=== PATIENT | female | born 1950 | race Caucasian/White ===

== ENCOUNTER 2022-06-26 14:42 | Outpatient (CLI) | payer MEDICARE, SELFPAY ==
[2022-06-26 14:10] LABS: Chloride* 109 mmol/L (96-114); Potassium* 3.7 mmol/L (3.6-5.1); Sodium* 144 mmol/L (135-149)
[2022-06-26 14:13] LABS: Blood Urea Nitrogen* 11 mg/dL (7-30); Carbon Dioxide* 29 mmol/L (20-32); Cholesterol* 181 mg/dL (90-199); Estimated Glomerular Filt Rate 60 ml/min; Glucose* 88 mg/dL (60-115); Triglycerides* 147 mg/dL (40-149)
[2022-06-26 14:14] LABS: Calcium* 8.7 mg/dL (8.4-10.6); HDL Cholesterol* 66 mg/dL (>=50); LDL Cholesterol Calculated 86 mg/dL (<100)
== END 2022-06-26 14:43 | disposition home or self-care (01) ==
PROVIDERS: PCP Emergency Medicine; Visit Provider Emergency Medicine
DX: Z00.00 Encounter for general adult medical examination without abnormal findings (principal); Z13.6 Encounter for screening for cardiovascular disorders; R19.7 Diarrhea, unspecified
CPT/HCPCS: 80048; 80061

== ENCOUNTER 2022-07-03 12:36 | Outpatient (CLI) | payer MEDICARE, SELFPAY ==
--- NOTE | 2022-07-03 14:21 | W.ANESCHARGE ---
Anesthesia Charges Start Date/Time Anesthesia Start Date: 07/03/22 Anesthesia Start Time: 14:05 Stop Date/Time Anesthesia Stop Date: 07/03/22 Anesthesia Stop Time: 14:43 Summary Emergency: No Extremes of Age: Over 70-CPT 13656
--- NOTE | 2022-07-03 14:45 | W.ANESCHARGE ---
Anesthesia Charges Start Date/Time Anesthesia Start Date: 07/03/22 Anesthesia Start Time: 14:05 Stop Date/Time Anesthesia Stop Date: 07/03/22 Anesthesia Stop Time: 14:43 Summary Emergency: No Extremes of Age: Over 70-CPT 30198
== END 2022-07-03 12:37 | disposition home or self-care (01) ==
LOC: OP CLINIC 12:37
PROVIDERS: PCP Emergency Medicine; Visit Provider Surgery
DX: Z12.11 Encounter for screening for malignant neoplasm of colon (principal); K63.5 Polyp of colon; K57.30 Diverticulosis of large intestine without perforation or abscess without bleeding
CPT/HCPCS: 00811; 45385; 88305; 99100; J2704

== ENCOUNTER 2022-08-23 16:10 | Outpatient (CLI) | payer MEDICARE, SELFPAY ==
[2022-08-23 21:57] LABS: Chloride* 110 mmol/L (96-114); Potassium* 4.2 mmol/L (3.6-5.1); Sodium* 140 mmol/L (135-149)
[2022-08-23 21:59] LABS: Creatinine* 1.1 mg/dL (0.5-1.5); Estimated Glomerular Filt Rate 53 ml/min
[2022-08-23 22:00] LABS: Blood Urea Nitrogen* 13 mg/dL (7-30); Calcium* 9.2 mg/dL (8.4-10.6); Carbon Dioxide* 26 mmol/L (20-32); Glucose* 87 mg/dL (60-115)
== END 2022-08-23 16:11 | disposition home or self-care (01) ==
PROVIDERS: PCP Emergency Medicine; Visit Provider Emergency Medicine
DX: Z01.818 Encounter for other preprocedural examination (principal)
CPT/HCPCS: 80048

== ENCOUNTER 2022-08-30 06:04 | Day surgery (SDC) | payer MEDICARE, SELFPAY ==
[2022-08-30 06:30] VITALS: BMI 25.7
[2022-08-30 06:33] VITALS: BP 134/85; PULSE 72; RESP 16; TEMP 36.2; O2SAT 100
[2022-08-30] MEDS: LACTATED RINGERS 1000 ML 1,000 ML 100 ML IV (06:40)
[2022-08-30] MEDS: ETHYL CHLORIDE 1 APPLICATION 1 APPLIC TOPICAL (06:40)
[2022-08-30] MEDS: SODIUM CHLORIDE 0.9 % (FLUSH) 10 ML SYRINGE IVF (06:40)
--- NOTE | 2022-08-30 06:46 | SUR.PREOP ---
home covid test negative
[2022-08-30 06:56] LABS: Hemoglobin* 12.8 gm/dL (12.0-16.0)
--- NOTE | 2022-08-30 08:01 | P.ANES_ITS ---
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
[2022-08-30] MEDS: BUPIVACAINE 0.5% 30 ML 8 ML INJECTION (08:10)
--- NOTE | 2022-08-30 08:26 | SUR.OPER ---
deficit of 65ml
[2022-08-30 08:40] VITALS: BP 121/62; PULSE 65; RESP 16; TEMP 36.1; O2SAT 98
--- NOTE | 2022-08-30 08:42 | P.GYNPRC_ITS ---
Procedure Note Date Seen: 08/30/22 Procedure Details: Preop diagnosis: Postmenopausal thickened endometrium Postop diagnosis: Postmenopausal thickened endometrium Name of procedure: Hysteroscopy, dilation and curettage Surgeon: Mario Alberto Cortes [facility] Agent: None Complications: None EBL: 5mL Drains: None Findings: Bimanual exam: Midline uterus of about 7cm, regular contour, no adnexal masses. Genitalia: Evidence of external hemorrhoids, small wart like lesion seen at around 8 o clock of perineum. Introitus with evidence of atrophy. Pelvic organ prolapse noted. Cervix seen to be as a small dot. Intrauterine cavity: Bilateral cornual openings seen, endometrial tissue looks like scared tissue, multiple calcifications. No abnormal vascularity or masses. Endocervical canal with a polypoid lesion that was removed. Patient was taken to the OR were MAC anesthesia was administered without difficulty. She was placed in the dorsal lithotomy position with Kin type stirrups. An exam under anesthesia as described above. Patient was then prepared and draped in the normal sterile fashion. A bivalved speculum was inserted in the posterior aspect of the vagina. Due to high grade prolapse and need for extensive cervical os dilation, a Lee catheter was placed to further identify bladder and keep empty throughout procedure to avoid damage to this structure. 0.5% Marcaine was injected at 2 and 11 o'clock a total of about 5mL utilized. A single-tooth tenaculum was used to grasp the anterior lip of the c ervix. The cervical os was sequentially dilated to accommodate the 5 mm TrueClear hysteroscope using Hegar dilators. This took an increased amount of time due to stenotic external cervical os. A 5 mm 30 degree TrueClear hysteroscope was introduced under direct visualization, and the uterus was distended with normal saline. Findings as above. Soft tissue incisor blade from TrueClear hysteroscope system was introduced under direct visualization and endometrial curettings performed. Hysteroscope removed under direct visualization. Sharp curettage performed afterwards. Tenaculum was removed from the cervix and good hemostasis was noted at puncture sites. Patient tolerated the procedure well. Instrument and sponge counts were correct x2. The patient was awakened from MAC anesthesia and taken to the recovery room in a stable condition. The patient will go home after recovering from anesthesia and meeting all the criteria for discharge. She was given instruction regarding follow-up visit in 2 weeks at [facility] and instructions for pain medication. Fluid deficit: 100mL
[2022-08-30] MEDS: ACETAMINOPHEN 500 MG TABLET 1000 MG PO (08:49)
[2022-08-30 08:55] VITALS: BP 129/72; PULSE 54; RESP 16; O2SAT 99
[2022-08-30 09:10] VITALS: BP 126/70; PULSE 48; RESP 16; O2SAT 98
[2022-08-30] MEDS: KETOROLAC 15 MG/ML inj IVP (09:11)
[2022-08-30 09:26] VITALS: BP 132/70; PULSE 62; RESP 16; TEMP 36.9; O2SAT 100
== END 2022-08-30 09:43 | disposition home or self-care (01) ==
PROVIDERS: PCP Emergency Medicine; Visit Provider Obstetrics & Gynecology
PROC: 0UDB8ZZ Extraction of Endometrium, Via Natural or Artificial Opening Endoscopic (ICD-10-PCS; CPT 58558; principal; 2022-08-30 07:15)
DX: R93.89 Abnormal findings on diagnostic imaging of other specified body structures (principal); N84.0 Polyp of corpus uteri
CPT/HCPCS: 58558; 00952; 36415; 85018; 88305; 99100; A9270; J1885; J2250; J2704; J3010; J3490; J7120

== ENCOUNTER 2023-02-06 20:38 | Emergency (ER) | payer MEDICARE, SELFPAY ==
[2023-02-06 20:57] VITALS: BP 148/84; PULSE 105; RESP 16; TEMP 36.6; O2SAT 100; BMI 25.6
--- NOTE | 2023-02-06 21:12 | ED.GENADULT ---
HPI - General Adult General Time Seen by Provider: 21:12 Date Seen: 02/06/23 Chief complaint: Back Injury/Pain Stated complaint: Back pain, Covid+ Time Seen by Provider: 02/06/23 21:03 Source: patient Mode of arrival: ambulatory Limitations: no limitations History of Present Illness HPI narrative: Patient is a 72-year-old female with a history of osteoarthritis, osteopenia, nephrolithiasis presenting to emergency department for back pain. She was diagnosed with COVID also. Patient states since Saturday she has been having worsening back pain. She went to her primary care provider and had imaging that she said was negative today. She denies any trauma to the area. States it feels like the muscle is tight and wraps around to her right lower ribs. Patient states she has had kidney stones in the past but this feels nothing like at that. She states this feels much more superficial in within the musculoskeletal air. She was given a hydrocodone by primary care provider. She took 2.5 mg and then 2 hours later bili 2.5 the improvement of symptoms. She states she was 1st taken Tylenol ibuprofen which was helping with her symptoms would stop that today because she took the hydromorphone. She thinks that set the pain over the top. Denies dysuria, abdominal pain, fevers, chills, chest pain, shortness of breath, weakness, numbness, diarrhea, constipation. Related Data Home Medications Medication Instructions Recorded Confirmed cholestyramine-aspartame 4 gram See Rx Instructions .Route .COMPLEX 08/21/22 02/06/23 oral powder (Prevalite) Previous Rx's Medication Instructions Recorded meloxicam 7.5 mg tablet 7.5 mg PO QDAY #30 tabs 05/07/22 nirmatrelvir 300 mg (150 mg See Rx Instructions PO .COMPLEX 02/04/23 x2)-ritonavir 100 mg tablet,dose #30 ea pack (Paxlovid) hydrocodone 5 mg-acetaminophen 325 0.5 - 1 tab PO Q4-6H PRN pain #20 02/06/23 mg tablet tabs Allergies Allergy/AdvReac Type Severity Reaction Status Date / Time No Known Allergies Allergy Verified 02/06/23 11:33 Review of Systems Status of ROS: Reports: 10 or more systems reviewed and unremarkable except as noted in History and below [facility] [place] [facility] History (Updated 02/06/23 @ 22:04 by Tom Castro DO) Chest pain ?R07.9 - Chest pain, unspecified (ICD-10) Leg pain ?M79.606 - Pain in leg, unspecified (ICD-10) Endometrial thickening on ultrasound ?R93.89 - Abnormal findings on diagnostic imaging of other specified body structures (ICD-10) Pre-op exam ?Z01.818 - Encounter for other preprocedural examination (ICD-10) Vaginal prolapse ?N81.10 - Cystocele, unspecified (ICD-10) Rectal prolapse ?K62.3 - Rectal prolapse (ICD-10) Encounter for postoperative care ?Z48.89 - Encounter for other specified surgical aftercare (ICD-10) Encounter for screening colonoscopy ?Z12.11 - Encounter for screening for malignant neoplasm of colon (ICD-10) Surgical History History of thumb surgery ?Z98.890 - Other specified postprocedural states (ICD-10) History of lithotripsy (08/12/09) ?Z98.890 - Other specified postprocedural states (ICD-10) History of cholecystectomy ?Z90.49 - Acquired absence of other specified parts of digestive tract (ICD-10) Family History Sister Breast cancer Diabetes Maternal Grandmother Breast cancer Father Diabetes Social History Smoking Status: Never smoker How often do you have a drink containing alcohol: 2-3 times a week How often do you have six or more drinks on one occasion: Never AUDIT-C Alcohol total score: 3 Little interest or pleasure in doing things: several days Feeling down, depressed, or hopeless: several days Exam Narrative: Exam Narrative: Const: Well-nourished, Well-developed, in mild distress Eyes: PERRL, no conjunctival injection, and symmetrical lids ENMT: Atraumatic external nose and ears. Moist mucous membranes. Neck: Symmetric, trachea midline, No thyromegaly. CVS: RRR, No murmurs or gallops. Peripheral pulses 2+ and equal in all extremities RESP: Unlabored respiratory effort. Clear to auscultation bilaterally. GI: Nontender/Nondistended, No rebound or guarding. MSK:Extremities w/o deformity, Normal Active ROM. Tenderness to right paraspinal muscles or on the costovertebral angle radiates to her right anterior lower ribs Skin: Warm, Dry. No rashes or lesions. Neuro: Normal Muscle tone, No focal neurological deficits. Psych: Awake, Alert, & Oriented x3. Appropriate mood and affect. Const: Vital Signs, click to edit/add: Vital Signs - 24 hr 02/06/23 20:57 Temperature 97.9 F Pulse Rate [Right Pulse Oximeter] 105 H Respiratory Rate 16 Blood Pressure [Ri ght Upper Arm] 148/84 H Pulse Oximetry 100 Oxygen Delivery Me thod Room Air Course Vital Signs Vital signs: Initial Vital Signs Temperature 97.9 F 02/06/23 20:57 Temperature Source Temporal Artery Scan 02/06/23 20:57 Pulse Rate 105 H 02/06/23 20:57 Pulse Rhythm Regular 02/06/23 20:57 Respiratory Rate 16 02/06/23 20:57 Blood Pressure 148/84 H 02/06/23 20:57 Blood Pressure Mean 105 02/06/23 20:57 Blood Pressure Position Sitting 02/06/23 20:57 Pulse Oximetry 100 02/06/23 20:57 Oxygen Delivery Method Room Air 02/06/23 20:57 Vital Signs Temperature 97.9 F 02/06/23 20:57 Pulse Rate 105 H 02/06/23 20:57 Respiratory Rate 16 02/06/23 20:57 Blood Pressure 148/84 H 02/06/23 20:57 Pulse Oximetry 100 02/06/23 20:57 Oxygen Delivery Method Room Air 02/06/23 20:57 Temperature 97.9 F 02/06/23 20:57 Pulse Rate 105 H 02/06/23 20:57 Respiratory Rate 16 02/06/23 20:57 Blood Pressure 148/84 H 02/06/23 20:57 Pulse Oximetry 100 02/06/23 20:57 Oxygen Delivery Method Room Air 02/06/23 20:57 Medical Decision Making MDM Narrative Medical decision making narrative: Patient is a 72-year-old female presenting for right-sided back pain. She has also recently diagnosed with COVID. She was seen by her primary care provider and was given hydromorphone which did not improve her symptoms. She was taking Tylenol ibuprofen before but stopped them because she was given hydromorphone. She think stopping those medications caused her pain to get worse. She does state the pain is in her back radiating to her flank and ribs. She has had kidney stones in the past as adamant this feels nothing like that. She states this feels more superficial within the musculoskeletal layer. This time and not believe she has a kidney stone we would not do a CT scan. Most left the musculoskeletal ache levels worsened by the recent COVID diagnosis. Patient was given a muscle relaxer, Toradol and a Lidoderm patch. After these medications her symptoms improved significantly since she is able to walk around. She is otherwise doing well at this time and I will discharge her home. Will give her pain medication to go home with. She is agreeable to this plan. I did describe both Flexeril and oxycodone. I I spoke to her in depth from home again confirmed complete info was taken together that she needs to take them for her pain she should be very careful. Gave instructions to try all other medications before she tries the oxycodone. She was prescribed Paxil that but states she is not taking because she did not like the taste in her mouth. Paxil of it does cause increased that was oxycodone. I talked her about this and states if she does decide to take the Paxil med to take 2.5 mg of oxycodone instead of the 5. She states she understands. Discharge Plan Discharge Clinical Impression: Muscle strain Patient Disposition: Home, Self-Care Condition: Improved Instructions: Muscle Strain (DC) Additional Instructions: Follow-up with primary care provider. Take the medications as prescribed. Return for new worsening symptoms. Take Tylenol, ibuprofen and the Flexeril before you try the oxycodone. Using Flexeril and oxycodone at the same time could cause you become lightheaded. So be very careful of your taking these together. Prescriptions: No Action Paxlovid 300 mg (150 mg x 2)-100 mg tablets,dose pack See Rx Instructions PO .COMPLEX Qty: 30 0RF Rx Instructions: take TWO 150 mg tablets of nirmatrelvir with ONE 100 mg tablet of ritonavir twice daily for 5 days PO hydrocodone-acetaminophen 5-325 mg tablet 0.5 - 1 tab PO Q4-6H PRN (Reason: pain) Qty: 20 0RF Prevalite 4 gram powder See Rx Instructions .ROUTE .COMPLEX Patient Comments: TAKE 4 G BY MOUTH AT BEDTIME. Rx Instructions: 4 gram by mouth at bedtime. meloxicam 7.5 mg tablet 7.5 mg PO QDAY Qty: 30 0RF Follow Up/Referrals: Kaleigh Gray MD [Primary Care Provider] - Stand Alone Forms: MyHealth Info Instructions
[2023-02-06] MEDS: LIDOCAINE 5% PATCH 1 PATCH TRANSDERMA (21:25)
[2023-02-06] MEDS: KETOROLAC 30 MG/ML inj IM (21:26)
[2023-02-06] MEDS: CYCLOBENZAPRINE HCL 10 MG TABLET PO (21:32)
--- NOTE | 2023-02-06 21:32 | ED.NURSE ---
Per provider, due to spasms described, hold on morphine for now and administer flexeril. See MAR for additional details.
== END 2023-02-06 22:11 | disposition home or self-care (01) ==
PROVIDERS: Emergency Provider Student in an Organized Health Care Education/Training Program; PCP Emergency Medicine
DX: S39.012A Strain of muscle, fascia and tendon of lower back, initial encounter (principal)
CPT/HCPCS: 96372; 99282; 99283; A9270; J1885; J2270

== ENCOUNTER 2023-03-06 14:28 | Outpatient (CLI) | payer MEDICARE, SELFPAY ==
--- NOTE | 2023-03-06 15:00 | CT_ITS ---
Final Report Patient: NIMO WOOTEN Facility:?[facility] Patient ID:?[id number] Site Patient ID:?[id number]. Site :?[id number] Study:?CT Chest Angio w/ 95cc isovue-370 PE Protocol-03/06/2023 3:18:28 PM Ordering Physician:?Isaac Farris Final Report: INDICATION: WORSENING CHEST PAIN AFTER PE, BILAT CHEST/FLANK PAIN. PE DIAGNOSED 02/19. TECHNIQUE: CT chest PE was acquired with 95 cc Omnipaque 370 IV contrast. COMPARISON: No prior CT pulmonary angiogram available for comparison at the time of this dictation. FINDINGS: Heart and vasculature: Contrast opacification of the pulmonary arterial tree is adequate. No sign of pulmonary embolism. Heart size is normal. Thoracic aorta and pulmonary artery are normal in caliber. Lungs and pleura: Left basilar multilobar multisegmental (inferior lingular segment left upper lobe, anteromedial segment and lateral segment left lower lobe) pleural-based been opacities consistent with subsegmental atelectasis and/or nonspecific fibrosis. No pleural effusions, pleural thickening, or pneumothorax. Lymph nodes/mediastinum: No mediastinal, hilar, or axillary adenopathy. Chest wall: No masses. Upper abdomen: No acute or significant findings. Bones: Unremarkable for age. IMPRESSION: No evidence of pulmonary embolism or other significant acute cardiopulmonary process. Incidental findings described above. Please note that all CT scans at this facility use dose modulation, iterative reconstruction, and/or weight-based dosing when appropriate to reduce radiation dose to as low as reasonably achievable. Dictated by Primo Petresen MD @ 03/06/2023 4:45:52 PM (Electronic Signature)
--- NOTE | 2023-03-06 15:00 | CRLHL7_ITS ---
For Patients: As a result of the Century Cures Act, medical imaging exams and procedure reports are released immediately into your electronic medical record. You may view this report before your referring provider. If you have questions, please contact your health care provider. INDICATION : Bilateral flank pain. History of PE. COMPARISON : None. TECHNIQUE : Contrast-enhanced CT scan of the abdomen and pelvis was performed following the intravenous administration of 95 mL of Isovue 370. FINDINGS : Lower chest: Minimal linear atelectasis and/or scarring in the lung bases. Liver: Unremarkable. Normal in size and attenuation. No suspicious masses. Gallbladder and bile ducts: Status post cholecystectomy. Normal caliber common bile duct. Pancreas: Unremarkable. No mass or inflammation. Spleen: Unremarkable. Normal in size. No masses. Adrenal glands: Unremarkable. No nodules. Kidneys: Unremarkable. No suspicious masses, stones, or hydronephrosis. GI tract: Mild sigmoid diverticulosis. No diverticulitis or colitis. Tiny gastric hiatus hernia. Normal small bowel. Normal appendix. Vasculature: Abdominal aorta is normal in caliber. Mesenteric arteries are patent. The IVC and iliac veins are patent without filling defects. Lymph nodes: No lymphadenopathy. Peritoneum/Abdominal Wall: Unremarkable. No sign of mass or infiltration. No free air or significant free fluid. Pelvis: A pelvic pessary is present. The uterus and adnexa are unremarkable. The urinary bladder is unremarkable. Bones: Degenerative spondylosis of the lumbar spine. IMPRESSION: 1. No acute abnormality. 2. Mild sigmoid diverticulosis. Please note that all CT scans at this facility use dose modulation, iterative reconstruction, and/or weight-based dosing when appropriate to reduce radiation dose to as low as reasonably achievable. Dictated by Sohail Anderson MD @ 03/06/2023 3:50:47 PM (Electronically Signed)
== END 2023-03-06 14:29 | disposition home or self-care (01) ==
LOC: CT 14:28
PROVIDERS: PCP Emergency Medicine; Visit Provider Emergency Medicine
DX: R10.9 Unspecified abdominal pain (principal); K57.30 Diverticulosis of large intestine without perforation or abscess without bleeding; M50.323 Other cervical disc degeneration at C6-C7 level; R07.9 Chest pain, unspecified; M54.6 Pain in thoracic spine
CPT/HCPCS: 71275; 74177; 80076; 87086; Q9967

== ENCOUNTER 2023-03-28 08:58 | Outpatient (CLI) | payer MEDICARE, SELFPAY ==
--- NOTE | 2023-03-28 09:00 | CRLHL7_ITS ---
For Patients: As a result of the Century Cures Act, medical imaging exams and procedure reports are released immediately into your electronic medical record. You may view this report before your referring provider. If you have questions, please contact your health care provider. INDICATION: Chest and back pain. Elevated alkaline phosphatase. TECHNIQUE: 25 mCi of Tc-99m labeled MDP administered. Delayed whole body images obtained with the patient at rest. Oblique views of the thorax/thoracic spine were obtained. COMPARISON: Correlation is made with a contrast-enhanced CT of the chest March 06, 2023. Correlation is made with plain radiographs of the thoracic spine March 06, 2023. FINDINGS: There is good uptake of activity by the skeleton. There is focal uptake at T8 centrally and toward the right of midline. There was no obvious CT correlate on the prior x-rays or chest CT March 06, 2023. Consider MRI of the thoracic spine for further characterization. Scattered mild degenerative type activity within the shoulders, sternoclavicular joints, wrists, right ankle, and dorsal left foot. The kidneys are present without obstruction. IMPRESSION: 1. Focal increased uptake at approximately T8 centrally and toward the right of midline. Differential diagnostic possibilities include possible posttraumatic type uptake versus a primary or secondary neoplasm of the bone. Further imaging evaluation such as with MRI is recommended. 2. Scattered predominantly axial degenerative-type activity. Dictated by Ryan Berry MD @ 03/29/2023 9:15:54 AM (Electronically Signed)
== END 2023-03-28 08:59 | disposition home or self-care (01) ==
LOC: NM 08:59
PROVIDERS: PCP Emergency Medicine; Visit Provider Emergency Medicine
DX: R07.9 Chest pain, unspecified (principal); R79.89 Other specified abnormal findings of blood chemistry
CPT/HCPCS: 78306; A9503

== ENCOUNTER 2023-04-11 11:05 | Outpatient (CLI) | payer MEDICARE, SELFPAY | END 2023-04-11 11:06 | disposition home or self-care (01) | LOC: LKVREF 11:05 | PROVIDERS: PCP Emergency Medicine; Visit Provider Emergency Medicine | DX: R94.8 Abnormal results of function studies of other organs and systems (principal); R74.8 Abnormal levels of other serum enzymes; R77.8 Other specified abnormalities of plasma proteins; E66.9 Obesity, unspecified | CPT/HCPCS: 80076; 82977; 84165 ==

== ENCOUNTER 2023-04-18 08:58 | Outpatient (CLI) | payer MEDICARE, SELFPAY ==
--- NOTE | 2023-04-18 09:15 | CRLHL7_ITS ---
For Patients: As a result of the Century Cures Act, medical imaging exams and procedure reports are released immediately into your electronic medical record. You may view this report before your referring provider. If you have questions, please contact your health care provider. INDICATION: Abnormal bone scan. Comparison bone scan 03/28/2023. TECHNIQUE: Sagittal T1, T2, and STIR sequences. Axial T2/gradient sequences. Post gadolinium T1 weighted sequences. FINDINGS: Normal vertebral body and facet alignment. No fractures. No vertebral body loss of height. No spondylosis. No ligamentous injury. There is abnormal signal intensity within the T7-8 disc space with cortical irregularity of the adjacent endplates. There edema and enhancement of the adjacent vertebral bodies. Finds the concerning for changes of discitis and osteomyelitis. This can account for the findings on the recent bone scan. Enhancing tissue extends into the dorsal epidural space at the level of T7 and T8 consistent with extension of infection/inflammation. No evidence of drainable epidural abscess. Edema/inflammation extends into the surrounding paravertebral soft tissues. No drainable abscess. Vertebral body hemangioma T9. No suspicious osseous lesions. Normal cord signal. No intradural mass or lesion. Mild thoracic spondylosis with multilevel disc degeneration. T6-7: Mild disc generation with no spinal canal or neural foraminal narrowing. T7-8: Changes of discitis and osteomyelitis described above. Posterior disc bulging. No narrowing of spinal canal. No neural foraminal narrowing. T10-11 C06-13-S90-N3: Disc degeneration with no spinal canal or neural foraminal narrowing. Normal paraspinal soft tissues. IMPRESSION: 1. Abnormal signal intensity enhancement involving the T7-8 disc space and adjacent vertebral bodies concerning for discitis and osteomyelitis. 2. Extension of infection/inflammation into the dorsal epidural space. However, no drainable epidural abscess. No significant mass effect upon the thecal sac. 3. Otherwise, normal alignment. No fractures 4. Normal cord signal. 5. Mild thoracic spondylosis. Dictated by Jake Osman MD @ 04/19/2023 12:37:53 PM (Electronically Signed)
== END 2023-04-18 08:59 | disposition home or self-care (01) ==
LOC: MRI 08:59
PROVIDERS: PCP Emergency Medicine; Visit Provider Emergency Medicine
DX: R94.8 Abnormal results of function studies of other organs and systems (principal); M46.24 Osteomyelitis of vertebra, thoracic region; M47.894 Other spondylosis, thoracic region
CPT/HCPCS: 72157; A9575

== ENCOUNTER 2023-05-29 09:38 | Outpatient (CLI) | payer MEDICARE, SELFPAY | END 2023-05-29 09:39 | disposition home or self-care (01) | LOC: NFLDREF 06-04 22:55 | PROVIDERS: PCP Emergency Medicine; Referring Provider Emergency Medicine; Visit Provider Emergency Medicine | DX: R51.9 Headache, unspecified (principal); R94.8 Abnormal results of function studies of other organs and systems | CPT/HCPCS: 85651 ==

== ENCOUNTER 2023-06-14 08:03 | Outpatient (CLI) | payer MEDICARE, SELFPAY ==
--- NOTE | 2023-06-14 08:15 | CRLHL7_ITS ---
For Patients: As a result of the Cures Act, medical imaging exams and procedure reports are released immediately into your electronic medical record. You may view this report before your referring provider. If you have questions, please contact your health care provider. BILATERAL SCREENING MAMMOGRAM WITH COMPUTER-AIDED DETECTION AND TOMOSYNTHESIS TECHNIQUE: CC and MLO views were obtained. These mammographic images have been obtained using full-field digital technique. These mammographic images were interpreted with the benefit of computer-aided detection. Breast Tomosynthesis was used in this interpretation. COMPARISON FILM: , 12/01/21, 09/16/20, 10/03/18. FINDINGS: There are scattered areas of fibroglandular density IMPRESSION: There is no radiographic evidence for malignancy. ASSESSMENT: BI-RADS Category 1: Negative RECOMMENDATION: Routine screening mammogram in 1 year. A lay language report of this examination will be provided to the patient. Shivam Donahue M.D. Diagnostic Radiologist [email or web address] DAVIDSON/betsy / be/Dictated by: Shivam Donahue MD @ 06/14/2023 10:20:00 AM (Electronically Signed)
== END 2023-06-14 08:04 | disposition home or self-care (01) ==
LOC: MAMMO 08:04
PROVIDERS: PCP Emergency Medicine; Visit Provider Emergency Medicine
DX: Z12.31 Encounter for screening mammogram for malignant neoplasm of breast (principal)
CPT/HCPCS: 77063; 77067

== ENCOUNTER 2023-06-25 19:39 | Outpatient (CLI) | payer MEDICARE, SELFPAY | END 2023-06-25 19:40 | disposition home or self-care (01) | LOC: LKVREF 19:40 | PROVIDERS: PCP Emergency Medicine; Visit Provider Emergency Medicine | DX: M86.9 Osteomyelitis, unspecified (principal) | CPT/HCPCS: 86140 ==

== ENCOUNTER 2023-07-02 09:16 | Outpatient (RCR) | payer MEDICARE, SELFPAY ==
--- NOTE | 2023-06-05 10:17 | ONC.NURNOTE ---
Patient had a consult set up with hematology on 05/14/2023, she cancelled this appointment. She notes that her PCP stopped her eliquis the end of April per her PCP. Left message with PCP to see if she would still like to have patient see hematology or can wait at this time.
== END 2023-12-29 23:59 | disposition home or self-care (01) ==
LOC: CCIC 09:16
PROVIDERS: PCP Emergency Medicine; Visit Provider Internal Medicine Hematology & Oncology
DX: I26.99 Other pulmonary embolism without acute cor pulmonale (principal); M85.80 Other specified disorders of bone density and structure, unspecified site; M54.9 Dorsalgia, unspecified
CPT/HCPCS: 99202; 99204

== ENCOUNTER 2023-08-05 07:00 | Outpatient (CLI) | payer MEDICARE, SELFPAY ==
--- NOTE | 2023-08-05 07:15 | CRLHL7_ITS ---
For Patients: As a result of the Century Cures Act, medical imaging exams and procedure reports are released immediately into your electronic medical record. You may view this report before your referring provider. If you have questions, please contact your health care provider. INDICATION: History of osteomyelitis Comparison 04/18/2023. Technique: Sagittal T1, T2, and STIR sequences. Axial T2/gradient sequences. FINDINGS: Normal vertebral body alignment. No fractures. No spondylolisthesis. No limbs injury. Compared to the previous exam, previously noted abnormal signal intensity within the T7-8 disc space and the adjacent vertebral bodies has significantly improved. Mild residual marrow edema in the inferior half of the T7 vertebral body. No inflammation in the paravertebral soft tissues or adjacent epidural space. Associated decreased enhancement within the disc space at and adjacent vertebral bodies. No suspicious osseous lesions. Normal cord signal. No intradural mass or lesion. Mild thoracic spondylosis with multilevel disc degeneration. T2-3 T3-4: Mild disc degeneration no spinal canal or neural foraminal narrowing. T7-8: Disc generation posted disc bulge. No narrowing of the spinal canal. No neural foraminal narrowing. No spinal canal or neural foraminal narrowing at the remaining levels of the thoracic spine. Normal paraspinal soft tissues. IMPRESSION: 1. Interval resolving changes of diskitis and osteomyelitis at T7-8 with decreased abnormal signal intensity enhancement involving the disc space and adjacent vertebral bodies on the current exam. No abnormal enhancement in the paravertebral soft tissues or epidural space 2. No discitis or osteomyelitis at the remaining levels. 3. Normal cord signal. 4. Mild thoracic spondylosis 5. No spinal canal or neural foraminal narrowing at all levels. Dictated by Jake Osman MD @ 08/06/2023 10:12:30 AM (Electronically Signed)
== END 2023-08-05 07:01 | disposition home or self-care (01) ==
LOC: MRI 07:03
PROVIDERS: PCP Emergency Medicine; Visit Provider Internal Medicine Infectious Disease
DX: M86.9 Osteomyelitis, unspecified (principal); M47.894 Other spondylosis, thoracic region
CPT/HCPCS: 72157; A9575

== ENCOUNTER 2023-11-13 11:45 | Outpatient (RCR) | payer MEDICARE, SELFPAY ==
--- NOTE | 2023-10-23 22:08 | PT.OPE ---
PT [place] [facility] Eval PT [facility] Out[facility] Eval Start: 10/23/23 12:45 Freq: Status: Active Protocol: Document 10/23/23 13:13 BMS (Rec: 10/23/23 13:22 BMS [id number]) E-signed By Noelle Castañeda PT Physical Therapy Outpatient Evaluation Insurance Information Recert Due Date 01/20/24 Insurance Name Medicare B Medical Diagnosis Pain in unspecified hip M25. 559 eval and treat for R greater trochanteric bursitis, R hip OA, lumbar spondylosis of L3-4 Treating Diagnosis low back pain M54.50 hip pain M25.559 abnormal gait R 26.89 lumbar radiculopathy M54.16 Referring MD Tom Andres PA-C Subjective Subjective have had back and hip pain for years. Has been getting worse last 6 mos to year or so but have had other issues - got Covid in Feb last year then a few weeks later had severe chest and back pain, wrapping around and it ended up being a blood clot. So I was in the hospital x 3 days, on blood thinners x 3 mos. I also have an inflammation in the spine somewhere up here (thoracic), but had scan and that showed it is improving. Have a scoliosis and I can't believe how much of a curve there is. doctor thinks it might be my back not my hip. when I go to bed or sit in the recliner a long time then my toes go numb , feels weird under here (MTP heads). pain does go down the side of my leg too to the ankle sometimes, I don't know when Pain Comments 08/31 now was severe, was keeping me from sleeping, hurts with standing walking, sitting long times Current Work Status Retired Occupation currently cares for grandchildren daily Preferred Name Ana Precautions Treatment Precautions/Contraindications post covid complications ( blood clot), significant fatigue osteomyelitis (resolving per scan) ~ T7 imbalance Therapy Limitations/Systems Review Vision,Other Medical Problem Objective Range of Motion trunk fwd flex fingertips to distal ashraf, ext severe loss w left deviation L SB WNL, R SB pain and severe loss of ROM SLR 50 R with pain up leg to SI hip ER >60, IR 20 ankle DF R 5 degrees significant resist with tight in calf and HS Strength MMT seated hip flex B 3/5 quad R = 4+/5, L = 5/5 B HS 5/5 B ankle DF, PF, eversion 5/5 hip seated abduct and adduct 4 /5. Palpation severe tenderness througout lumbar and gluteal regions most exquisite at SI B and into glute, piriformis. Balance & Gait mod path deviation with regular gait, LOB with heel walk, toe walk ok. SLS 5 sec B with significant wobble on R SLS impaired EC, compliant surface not assessed Posture left thoracic scoliosis noted (per xray noted~ 10 deg) increased WB on left but with less mass in L glute vs R Sensation/Reflexes DTR B quad 3+, L achilles 3+, R achilles 2+ sensation not assessed this date due to time Other/Pertinent Objective + SLR for neuro pain on L, also R, unable to fully perform slump, scour = pain in lateral hip and SI Functional Test Performed & Score 5x STS = 17 sec Assessment Assessment/Impression Patient is pleasant 73 y.o female referred to physical therapy for chronic hip, low back and R LE pain. She is known to this therapist via prior treatment for hip pain several years ago, but has had medical complications since then. In February 2023 she became ill w Covid 19,stating initial illness itself was not terrible but that 2 weeks later developed severe pain in chest, ribs and back - was dx w blood clot PE. spent 3 days in hospital. Was also dx with osteomyelitis thoracic spine, which was noted to be improving on imaging. She was seen recently by ortho for hip and back pain, imaging indicates moderate to severe OA B hips sugar central, with osteophytes at femoral head and acetabulum, no signs of AVN and low lumbar degeneration. Spine imaging indicaes marginal osteophytes, subchondral /endplate sclerosis, and L3-4 disc height narrowing. She also notes development of scoliosis and osteoporosis. She is retired but does care for her 10 yo and 6 yo grandchildren in the area, getting up at 5: 30 to get them to school, and in the summer has more time with them, frequently going to activities. She also has been seen in [place] for pelvic therapy, recently had pessary inserted and this has made a world of difference per patient. She uses heat occsionally, has recently switched from meloxicam to celebrex, and notes relief with topical application of Voltarin to lowback/SI region. She notes ongoing fatigue, chronic pain, and new numbness of B MTP heads while in bed or in recliner. Pain currently 2/10 after being on steroids x 5 days and cortisone injection R hip. Prior to this pain would get severe, shooting down outside of leg to ankle. She also has noted a tendency to drift left in walking. Balance is impaired B but worse on R. Does have pain with L slump in back and w R SLR. Not cross over signs, pain is SI with L testing. Tissue quite tender and myofascial restrictions abundant, very brisk DTR B quad and L achilles, R diminished in comparison to normal. Patient will benefit from skilled physical therapy for core, hip and LE strenghtening and flexibility training, balance and gait and continued evaluation of symptoms for improvement vs referral for further medical. She responded well to therapy in past. Plan of Care Rehabilitation Potential Good Rehabilitation Potential Comments multiple comorbidities, chronic pain and fatigue Physical Therapy Goals 1 Patient I with home program designed for strength, mobility, balance and endurance as well as self management of pain techniques. 2 Patient demo ability to ascend/descend 2 x 10 stairs in safest least restrictive manner without exacerbation of pain. 3 Patient instructed in pacing techniques for dealing with long fatigue. 4 Pt demo appropriate lifting technique to protect back and hip. 5 Pt demo out of fall risk in FGA, DGI or similar balance scale Coordination/Communication With Referral Source Treatment Plan/Direct Interventions Electrical Stimulation,Gait Training,Heat,Ice/Cold/ Vasopneumatic,Manual Therapy, Neuromuscular Re-ed,Self-Care/ Home Management,Therapeutic Activities,Therapeutic Exercises,Traction (Mechanical ) Frequency/Duration 1-2x/ week x 12 visits Patient Will Be Discharged From Therapy Completion of LTG(s),Skills Plateau,Independent w/HEP, Independently Progressing Evaluation Billing Untimed Code Treatment Minutes 30 Complexity Low Certification Information Initial Certification Date 10/23/23 Ending Certification Date 01/20/24 Provider Signature Shows Agreement With POC & Medical Necessity Physician Signature & Date Requested Please Sign/Date Here Physician Comment/Change : Physician NPI Number #
== END 2024-03-12 23:59 | disposition home or self-care (01) ==
PROVIDERS: PCP Family Medicine; Visit Provider Physician Assistant Surgical
DX: M70.61 Trochanteric bursitis, right hip (principal); M16.11 Unilateral primary osteoarthritis, right hip; Z51.89 Encounter for other specified aftercare
CPT/HCPCS: 97110; 97140; 97161

== ENCOUNTER 2023-12-27 14:27 | Outpatient (CLI) | payer MEDICARE, SELFPAY | END 2023-12-27 14:28 | disposition home or self-care (01) | PROVIDERS: PCP Family Medicine; Visit Provider Family Medicine | DX: Z00.00 Encounter for general adult medical examination without abnormal findings (principal); E55.9 Vitamin D deficiency, unspecified; Z13.6 Encounter for screening for cardiovascular disorders; Z13.1 Encounter for screening for diabetes mellitus; Z11.59 Encounter for screening for other viral diseases | CPT/HCPCS: 80053; 80061; 86803 ==

== ENCOUNTER 2024-01-08 15:15 | Outpatient (CLI) | payer MEDICARE, SELFPAY ==
--- NOTE | 2024-01-08 15:30 | CRLHL7_ITS ---
For Patients: As a result of the Century Cures Act, medical imaging exams and procedure reports are released immediately into your electronic medical record. You may view this report before your referring provider. If you have questions, please contact your health care provider. DXA BONE MINERAL DENSITY STUDY Reason for exam: Screening. Current height (in): 63. Weight (lb): 149. Menopause age: 46. Ethnicity: White. 1. Have you had a previous hip or vertebral fracture? No. 2. Have you had any fractures during your adult life which did not result from significant trauma (e.g., auto accident)? No. 3. Did either of your parents have a hip fracture? No. 4. Do you smoke? No. 5. Have you ever taken Glucocorticoids? No. 6. Do you have rheumatoid arthritis? No. 7. Do you have secondary osteoporosis? No. 8. Do you drink 3 or more alcoholic drinks per day? No. 9. Are you being treated for osteoporosis? Yes. 10. Have you ever taken any of the following medications: Actonel, Evista, Fosamax, Miacalcin, Reclast, Boniva, Forteo, HRT (i.e. estrogen/hormone therapy), Protelos, Prolia, Vitamin D, Calcium, other ??? please specify. ANSWER: Yes, vitamin D, HRT (i.e. estrogen/hormone therapy), and calcium. 11. Do you have any of the following medical conditions: Anorexia or bulimia, asthma or emphysema, end stage renal disease, hyperparathyroidism, any seizure disorders, cancer, inflammatory bowel diseases, hysterectomy, other ??? please specify. ANSWER: Yes, inflammatory bowel diseases. 12. What was your maximum height (inches)? 64. 13. Do you perform weight bearing exercise regularly? No. 14. Do you regularly consume dairy products? Yes. 15. Do you drink caffeinated beverages? No. 16. At what age did your period start? 12. 17. Are you premenopausal? No. 18. How many full term pregnancies have you had? 3. 19. Have you ever missed your period for more than 6 months in a row (not including or menopause)? No. TECHNIQUE: Bone mineral density study was performed using the Re-vinyl. FINDINGS: The results of the study expressed as bone mineral density (BMD) are as follows: Lumbar spine L1 to L4: BMD: 0.838 g/cm2. T-score: -1.9. Z-score: 0.5. Neck Left: BMD: 0.604 g/cm2. T-score: -2.2. Z-score: -0.2. Right: BMD: 0.600 g/cm2. T-score: -2.2. Z-score: -0.2. Total Left: BMD: 0.726 g/cm2. T-score: -1.8. Z-score: -0.0. Right: BMD: 0.738 g/cm2. T-score: -1.7. Z-score: 0.1. IMPRESSION: Osteopenia. *Comparison exams done prior to 12/2019 were performed on different unit, Simpler. COMPARISON: Compared with scan of 03/01/2021, the bone mineral density has decreased by 13.4 percent at the spine and decreased by 2.4 percent at the hip. Compared with scan of 07/07/2015, the bone mineral density has decreased by 11.2 percent at the spine and decreased by 8.4 percent at the hip. Shivam Donahue M.D. Diagnostic Radiologist [email or web address] SP/Dictated by: Shivam Donahue MD @ 01/09/2024 10:53:00 AM (Electronically Signed)
== END 2024-01-08 15:16 | disposition home or self-care (01) ==
LOC: RAD 15:16
PROVIDERS: PCP Family Medicine; Visit Provider Family Medicine
DX: Z13.820 Encounter for screening for osteoporosis (principal); M85.89 Other specified disorders of bone density and structure, multiple sites; Z78.0 Asymptomatic menopausal state
CPT/HCPCS: 77080

== ENCOUNTER 2024-04-10 09:31 | Outpatient (RCR) | payer MEDICARE, SELFPAY ==
--- NOTE | 2024-04-14 08:18 | PT.OPE ---
PT [place] Outpatient Eval PT 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 No acute fractures avulsions. No signs of AVN. AP and Lateral views of the lumbar spine were obtained on 10/08/2023 from [facility], were ordered by a different physician, were reviewed by me today, and show mild apex left lumbar scoliosis focused at L2-3. There is moderate-severe L3-4 lumbar degenerative disc disease with disc height narrowing, subchondral/ endplate sclerosis, and osteophyte formation. To a lesser degree T12-L1, L4-5 and L5-S1 narrowing. Referring MD Pablo Shabazz MD Subjective Subjective kind of comes and goes, has pain about 10 days before I went in, primary said I need a hip replacement, saw ortho said might be from low back, still doing the ones standing at chair moving leg to side and to the back, and stretching leg back. rarely get leg cramps. upper back is better, went in to not taking anything right now, have oxy for at night when pain is bad and cant sleep. usually hip down to knee, sometimes to ankle. no hearing in L ear. lost my guys 3 weeks ago, he was terminally ill but still hard. still have the kids every morning to school then pick them up after school 3 days a week. Not really sleeping well. worry about not hearing alarm at 530 to go get the kids. feel pretty rested when wake up bladder has been better they put me on celexa and that has really helped. Pain Comments 1-2/ resting, have to sit after standing or walking bc pain severe Current Work Status Retired Precautions Treatment Precautions/Contraindications osteoporosis, arthrities, scoliosis Therapy Limitations/Systems Review Affect,Vision Objective Range of Motion hip flex passive 80-90 with pain, ER 30 w significant guarding, IR 10 significant guarding. ext to neutral knee WNL. trunk flex fingertips to knee with back and buttock pain, to knee trunk ext initially severe loss, after session was WNL. L SB WNL pull on R R SB pain and stuck with ~ 30% available range Strength MMT seated hip flex R = 4-/5, L = 5/5 with increased pain in lowback abduct B 5/5 adduct B 4/5 ER, IR B 5/5 quad R=4/5 pain in thigh, L= 5 /5 HS R= 4/5 with pain iN LE, L = 5/5 DF 4+/5 with pain in ashraf eversion R = pain in posterolateral leg Palpation mod tenderness and hypersensitive to light to mod touch across lumbar sugar at L3 -S1, glute piriformis, along ITband and sacrum Balance & Gait unremarkable gait patient reports limp with increased duration and intensity. Balance on R LE demo flail and significant LOB though able to self correct. also increases hip and back pain. L SLS 5-8 seconds no flail Posture lumbar scoliosis, increased thoracic kyphosis. Sensation/Reflexes DTR quads L=R hyper normal, achilles R delayed response Other/Pertinent Objective + Gowers sign, repeated flex distal symptoms, repeated trunk ext improved radicular signs + SLR Functional Test Performed & Score Oswestry Disability Index Score Summary Patient ID: No name entered Date Completed:04/10/2024 Section 1: Pain Intensity The pain is very mild at the moment (1 points) Section 2: Personal Care ( Washing, Dressing, etc.) I can look after myself normally but it causes extra pain (1 points) Section 3: Lifting Pain prevents me lifting heavy weights off the floor, but I can manage if they are conveniently placed, eg. on a table (2 points) Section 4: Walking Pain prevents me from walking more than 100 yards (3 points) Section 5: Sitting Pain prevents me from sitting more than one hour (2 points) Section 6: Standing Pain prevents me from standing for more than 1 hour (2 points) Section 7: Sleeping My sleep is occasionally disturbed by pain (1 points) Section 8: Sex life (if applicable) My sex life is normal and causes no extra pain (0 points) Section 9: Social life My social life is normal but increases the degree of pain (1 points) Section 10: Travelling I can travel anywhere but it gives me extra pain (1 points) Pertinent Negative Pertinent Positive Pertinent Positive Oswestry Disability Index Score: 14 points or 28 percent. Assessment Assessment/Impression Patient is pleasant 73 yo female referred for ongoing hip and back pain. I have seen her in the past for same complaint and patient was able to self manage with therapy. Unfortunately she lost her life partner a few weeks ago after [place] with terminal illness, and is responsible for getting her young grandchildren to and from school to help her children. Stress level is high, patient is emotional but open to instruction for pain management. She presents with lumbar radiculopathy as well as ITB syndrome. She requests home ex program, issued program for strength and mobility with instructions on ice/heat and positioning to alleviate symptoms. Patient to work on home ex program x 2-4 weeks then return for followup visit. May return sooner should her symptoms continue to limit activity. Plan at that time to advance program, trial of TENS/ estim, and application of manual therapy. Consider traction though I suspect she may not do well in the confines of the harness. Primary Functional Limitations stand, sit, stiff sugar in AM, legs have given out mostly ankles bend forward, lifting driving ok Plan of Care Rehabilitation Potential Good Physical Therapy Goals STG meet 2-3 weeks 1) Patient will demonstrate I HEP and self care/home mgmt techniques for pain management, core stability and ROM. 2 ) Pt report pain <2-3/10 with activity and provocative positions rolling over in bed, standing up, getting out of car etc. 3) Pt report pain not interrupting sleep more than 2x/ week without use of Medication. 4)Pt demo ability to participate in clinic and home strengthening program for core, hip, LE and balance. Coordination/Communication With Referral Source Treatment Plan/Direct Interventions Electrical Stimulation,Manual Therapy,Neuromuscular Re-ed, Self-Care/Home Management, Therapeutic Activities, Therapeutic Exercises,Traction (Mechanical) Frequency/Duration 1-4 times/ month, total of 8 visits possible. Patient Will Be Discharged From Therapy Completion of LTG(s),Skills Plateau,Independent w/HEP, Independently Progressing Evaluation Billing Untimed Code Treatment Minutes 35 Complexity Low Certification Information Initial Certification Date 04/10/24 Ending Certification Date 07/08/24 Provider Signature Required Yes Provider Signature Shows Agreement With POC & Medical Necessity Physician NPI Number Write NPI# Here Physician Comment/Change : Physician Signature & Date Requested Please Sign/Date Here
== END 2024-08-08 23:59 | disposition home or self-care (01) ==
PROVIDERS: PCP Family Medicine; Visit Provider Orthopaedic Surgery Sports Medicine
DX: M41.56 Other secondary scoliosis, lumbar region (principal); M54.16 Radiculopathy, lumbar region; Z51.89 Encounter for other specified aftercare; M47.817 Spondylosis without myelopathy or radiculopathy, lumbosacral region; M76.30 Iliotibial band syndrome, unspecified leg
CPT/HCPCS: 97110; 97161

== ENCOUNTER 2024-08-20 10:33 | Outpatient (CLI) | payer MEDICARE, SELFPAY | END 2024-08-20 10:34 | disposition home or self-care (01) | LOC: NFLDREF 10:34 | PROVIDERS: PCP Family Medicine; Visit Provider Obstetrics & Gynecology | DX: N89.8 Other specified noninflammatory disorders of vagina (principal); T83.89XA Other specified complication of genitourinary prosthetic devices, implants and grafts, initial encounter | CPT/HCPCS: 87070 ==

== ENCOUNTER 2024-11-11 09:38 | Outpatient (CLI) | payer MEDICARE, SELFPAY | END 2024-11-11 09:39 | disposition home or self-care (01) | LOC: NFLDREF 11-13 03:55 | PROVIDERS: PCP Family Medicine; Referring Provider Family Medicine; Visit Provider Physician Assistant Medical | DX: R30.0 Dysuria (principal); N39.0 Urinary tract infection, site not specified | CPT/HCPCS: 87086 ==

== ENCOUNTER 2025-02-12 11:18 | Outpatient (CLI) | payer MEDICARE, SELFPAY | END 2025-02-12 11:19 | disposition home or self-care (01) | PROVIDERS: PCP Family Medicine; Visit Provider Family Medicine | DX: Z13.228 Encounter for screening for other metabolic disorders (principal); Z13.6 Encounter for screening for cardiovascular disorders | CPT/HCPCS: 80053; 80061 ==

== ENCOUNTER 2025-04-19 08:51 | Day surgery (SDC) | payer MEDICARE, SELFPAY ==
[2025-04-19] VITALS (24 sets, daily range): BP systolic 90–148; BP diastolic 53–84; PULSE 50–91; RESP 14–18; TEMP 35.6–36.7; O2SAT 90–100; BMI 25.7
[2025-04-19] MEDS: ACETAMINOPHEN 500 MG TABLET 1000 MG PO ×3 (09:30→22:50)
[2025-04-19] MEDS: OXYCODONE (CR) 10 MG TAB.ER.12H PO (09:30)
--- NOTE | 2025-04-19 09:35 | W.PM.H&PU ---
History & Physical Update History & Physical Update H&P Reviewed and patient assessed: No changes noted
[2025-04-19] MEDS: SODIUM CHLORIDE 0.9 % (FLUSH) 10 ML SYRINGE IVF (09:45)
[2025-04-19] MEDS: LACTATED RINGERS 1000 ML 1,000 ML 100 ML IV ×3 (09:45→13:15)
[2025-04-19] MEDS: MIDAZOLAM HCL 1 MG/ML inj IVP (10:10)
--- NOTE | 2025-04-19 10:15 | CRLHL7_ITS ---
For Patients: As a result of the Cures Act, medical imaging exams and procedure reports are released immediately into your electronic medical record. You may view this report before your referring provider. If you have questions, please contact your health care provider. Indication: Hip replacement surgery Technique: AP hip fluoroscopic image. Fluoroscopy time 44.3 seconds. Findings/Impression: Hardware from a right total hip arthroplasty is in satisfactory position. Dictated by Shivam Donahue MD @ 04/19/2025 12:42:52 PM (Electronically Signed)
--- NOTE | 2025-04-19 10:27 | SUR.PREOP ---
TIME?OUT:?1010 PT/RN/MDA?VERIFICATION?OF?SURGICAL?SITE,?PROCEDURE,?AND?CONSENT OBTAINED?PRIOR?TO?INVASIVE?PROCEDURE.
--- NOTE | 2025-04-19 10:31 | SUR.PREOP ---
TIME?OUT:?1010 PT/RN/MDA?VERIFICATION?OF?SURGICAL?SITE,?PROCEDURE,?AND?CONSENT OBTAINED?PRIOR?TO?INVASIVE?PROCEDURE.
--- NOTE | 2025-04-19 10:44 | CRLHL7_ITS ---
For Patients: As a result of the Cures Act, medical imaging exams and procedure reports are released immediately into your electronic medical record. You may view this report before your referring provider. If you have questions, please contact your health care provider. Indication: Status post total hip arthroplasty Technique: AP pelvis and lateral view right hip Findings/Impression: Hardware from a right total hip arthroplasty is in satisfactory position. Bone alignment is normal. No sign of acute fracture. Postop changes are within normal limits. Dictated by Shivam Donahue MD @ 04/20/2025 9:54:29 AM (Electronically Signed)
[2025-04-19] MEDS: TRANEXAMIC ACID 100 MG/ML INJ 1000 MG IV (10:58)
--- NOTE | 2025-04-19 11:31 | SUR.OPER ---
PATIENT QUESTIONS ANSWERED SATISFACTORILY PREOPERATIVELY. PATIENT BROUGHT TO OR #3 PER CART AFTER ADMINISTRATION OF A BLOCK. Patient positioned supine on OR #3 bed. The perioperative team supported arms bilaterally on arm boards. Final approval of positioning by surgeon.
--- NOTE | 2025-04-19 11:58 | P.NB_ITS ---
Nerve Block Nerve Block Time Seen by Provider: 10:15 Date Seen: 04/19/25 Type of block requested by surgeon for post-operative analgesia: LEONIDAS/LFCN Side: right Time out performed: Yes Verification of patient name: Yes Verification of date of : Yes Site marking: site marked Name of person performing procedure: Nico Continuous monitoring Was continuous monitoring of O2 sat, B/P, monitoring specialist, recorded every 15 minutes?: Yes Procedure Checklist: sterile prep, needles and gloves Ultrasound guided. Images saved: Yes Medications given in 5ml increments after negative aspiration: Ropivicaine %: 0.5 mL: 30 Needle gauge: 20 Precedex (mcg): 25 Patient tolerated procedure well: Yes Additional comments: Needle noted below psoas tendon needle noted adjacent to LFCN Block Charges Block Charge (with Pro Fee): Other Periph Nerve Block Use of Ultrasound Machine for Block: Yes- US Guidance/pain block
--- NOTE | 2025-04-19 11:58 | P.ANES_ITS ---
Anesthesia Charges Start Date/Time Anesthesia Start Date: 04/19/25 Anesthesia Start Time: 10:44 Stop Date/Time Anesthesia Stop Date: 04/19/25 Anesthesia Stop Time: 13:02 Summary Extremes of Age - Over 70 or under 1: MDA Coding CPT Codes CPT Codes: ANESTH HIP ARTHROPLASTY - 92696 ([id number]) P2 - PATIENT W/MILD SYST DISEASE, QK - GWOT IA/ILO INTELLIGENCE SUPPORT 2-4 CNCRNT ANES PROC, QX - COMMERCIAL DOOR INSTALLER SVC W/ MD MED DIRECTION Additional Codes: Summary - Extremes of Age - Over 70 or under 1: MDA ([id number])
--- NOTE | 2025-04-19 11:58 | W.ANESCHARGE ---
Anesthesia Charges Start Date/Time Anesthesia Start Date: 04/19/25 Anesthesia Start Time: 10:44 Stop Date/Time Anesthesia Stop Date: 04/19/25 Anesthesia Stop Time: 13:02 Summary Extremes of Age - Over 70 or under 1: MDA Coding CPT Codes CPT Codes: ANESTH HIP ARTHROPLASTY - 91223 ([id number]) P2 - PATIENT W/MILD SYST DISEASE, QK - BOX PRINTING MACHINE OPERATOR 2-4 CNCRNT ANES PROC, QX - PRESS SERVICE READER SVC W/ MD MED DIRECTION Additional Codes: Summary - Extremes of Age - Over 70 or under 1: MDA ([id number])
--- NOTE | 2025-04-19 12:14 | PM.ORPRC ---
Procedure Note Date of procedure: 04/19/25 Procedure: PREOPERATIVE DIAGNOSIS: 1. Right hip osteoarthritis, severe, primary POSTOPERATIVE DIAGNOSIS: 1. Right hip osteoarthritis, severe, primary PROCEDURE: 1. Right total hip arthroplasty-anterior approach 2. 92292 - intraoperative fluoroscopy up to 1 hour. SURGEON: Pablo Shabazz MD. SPECIAL PROJECTS MANAGER: Tom Andres PA-C; ARUN Garrison - Of note, a skilled retail administrative assistant was critical for this case to aid in patient positioning, tissue retraction, limb manipulation/positioning, and closure. ANESTHESIA: Spinal anesthetic EBL: 300 mL IMPLANTS: DePuy J&J uncemented total hip Lillian cup size 40, hole eliminator, +0 neutral liner Actis stem, standard offset, size 5 +5 mm ceramic 32mm head COMPLICATIONS: None evident INDICATIONS: The patient is a pleasant 74-year-old female who has experienced severe right hip pain and difficulty bearing weight. Workup included x-rays which revealed severe osteoarthrosis in the hip. Given the deformity, the dysfunction, and the pain, as well as the failure of nonoperative management, recommendation was made for surgery. FINDINGS: Full-thickness chondral loss diffusely throughout the femoral head and to lesser degree acetabulum. Osteophytes on the femoral head/neck junction and perimeter of the acetabulum. Moderate effusion upon entering the joint. DESCRIPTION OF PROCEDURE: Following a thorough discussion of risks, benefits, and alternatives consent was obtained and the right hip was marked. The patient was brought to the operating room and placed supine on the operating table. Induction of anesthesia was undertaken. 1 g IV Ancef and 1 g tranexamic acid was administered within 1 hr of incision preoperatively. Proper time-out was performed identifying proper patient, site, procedure. The operative extremity was prepped and draped in the appropriate sterile fashion using ChloraPrep after the patient was positioned on the [place] table with head in neutral alignment and all bony prominences well padded. C-arm fluoroscopic imaging was utilized to confirm proper pelvis rotation and position, and to get true AP films of both the contralateral left, and the affected right hip. This is for comparison. A longitudinal incision was made starting approximately 1 cm distal to the ASIS, and 2-3 cm lateral. The incision was extended distally aiming toward the fibular head. Sharp incision through skin and bovie cautery through the subcutaneous tissue allowed identification of the TFL fascia. This was sharply divided, and the fascia bluntly released from the muscle fibers as we dissected medial. Upon coming to the medial border, we were able to retract the TFL laterally, and penetrated the deeper fascia and identify the crossing circumflex vessels. These were ligated/cauterized. The rectus was elevated from the capsule, and retractors placed laterally and medially along the femoral neck to help with visualization of the capsule. We then performed an inverted T capsulotomy. The capsule was tagged for later repair. Retractors were placed inside the capsule. The femoral neck was visualized after releasing medially down to the lesser trochanter, along the saddle laterally, and up onto the acetabulum. The femoral neck cut was made in line with our preoperative templating. The head was removed in a single piece, and sized. We turned our attention to acetabular preparation. Initially, the labrum was resected from around the perimeter, the pulvinar was excised, allowing us to visualize the false wall. We started the reaming with a 43 mm reamer. This was medialized down to the true wall. We then enlarged our reamers sequentially up to one size less than the selected cup size. We trialed at the same size and found it to have an excellent fit. The selected cup was then opened, inserted, and impacted in line with the goal of 40? of abduction, and 20-25? of anteversion. This was confirmed on C-arm fluoroscopic imaging to be in the appropriate/goal position. Once the cup was placed we placed a hole eliminator and a liner consistent with preop planning. Attention was turned to the femoral preparation. The limb was extended, externally rotated, and adducted. The posteromedial capsule was released, as retractors were placed allowing excellent access to the proximal femur. Initially a box truck owner operator was followed by canal finder followed by various broaches. We broached sequentially up to the size noted above, found it to have excellent rotational control, and trialing various heads and necks, revealed that appropriate neck offset, and the above noted head size provided the greatest stability, and faith of length, and offset. C-arm fluoroscopic imaging confirmed position of the stem, as well as leg lengths, which were compared with the pre procedure all fluoroscopic images. Trial implants were removed, the real femoral stem inserted, as was the appropriate head. After reducing, the leg was placed through range of motion and stability was confirmed anterior, posterior, and lateral. A 3 min Betadine soak was then performed, and thorough irrigation with normal saline followed. Closure of the capsule was performed with #1 PDS. Bleeding was confirmed to be controlled at this stage, and the TFL fascia was closed with #0 strata fix. Subcutaneous, and subcuticular closure was performed with 2-0 Stratafix and 4-0 Stratafix, respectively. Dressings were applied, and the patient was awoken from anesthesia and transferred the PACU in stable condition. A skilled retail administrative assistant was critical for this case to aid in patient positioning, tissue retraction, acetabular and proximal femoral exposure, limb manipulation/positioning, dislocation/relocation, patient safety, and closure. PLAN: 1. Weight bear as tolerated operative extremity. 2. 23 hr perioperative antibiotics. 3. Ice. 4. PT/OT consults for ambulation assistance/mobility education. 5. Social work consult for discharge planning. 6. DVT prophylaxis with at SCDs and Xarelto x5 days followed by aspirin for a total of 1 month.
--- NOTE | 2025-04-19 13:06 | P.ANES_ITS ---
Anesthesia Charges Start Date/Time Anesthesia Start Date: 04/19/25 Anesthesia Start Time: 10:44 Stop Date/Time Anesthesia Stop Date: 04/19/25 Anesthesia Stop Time: 13:02 Summary Extremes of Age - Over 70 or under 1: BONUS CLERK Coding CPT Codes CPT Codes: ANESTH HIP ARTHROPLASTY - 23973 ([id number]) P2 - PATIENT W/MILD SYST DISEASE, QK - DIRECTOR AGENCY & STRATEGIC PARTNERSHIPS 2-4 CNCRNT ANES PROC, QX - BONUS CLERK SVC W/ MD MED DIRECTION Additional Codes: Summary - Extremes of Age - Over 70 or under 1: BONUS CLERK ([id number])
--- NOTE | 2025-04-19 13:06 | W.ANESCHARGE ---
Anesthesia Charges Start Date/Time Anesthesia Start Date: 04/19/25 Anesthesia Start Time: 10:44 Stop Date/Time Anesthesia Stop Date: 04/19/25 Anesthesia Stop Time: 13:02 Summary Extremes of Age - Over 70 or under 1: TEST RACK OPERATOR Coding CPT Codes CPT Codes: ANESTH HIP ARTHROPLASTY - 91018 ([id number]) P2 - PATIENT W/MILD SYST DISEASE, QK - HAND MIXER 2-4 CNCRNT ANES PROC, QX - TEST RACK OPERATOR SVC W/ MD MED DIRECTION Additional Codes: Summary - Extremes of Age - Over 70 or under 1: TEST RACK OPERATOR ([id number])
--- NOTE | 2025-04-19 14:15 | REH.PT ---
Approached for PT eval, nsg reports patient not medically ready for PT this PM, will perform PT eval in AM
[2025-04-19] MEDS: CEFAZOLIN 1 GM in 0.9 % SODIUM CHLORIDE Mini-bag 100 ML IVPB (18:38)
[2025-04-19] MEDS: SENNOSIDES 1 TAB TABLET 2 TAB PO (20:34)
--- NOTE | 2025-04-19 22:10 | PC.NURSE ---
end of shift: Pt AOx4. VSS. Pt is pleasant & cooperative. Pt denies N/V. Pain has been < 6/10, pain med given; see EMAR. Active ice applied. SCDS in place. Pt urinating, eating, and drinking. Pt AMB w/ MUSHTAQ in hallway. Dressing on R hip C/D/I.
--- NOTE | 2025-04-19 22:47 | PM.IMCN1 ---
Date of Consult Consult date: 04/19/25 Primary Care Provider: Maria Del Carmen Gonzalez MD Consult Narrative Narrative: HOSPITALIST CONSULT Procedure: Right total hip arthroplasty-anterior approach SURGEON: Pablo Shabazz MD. ANESTHESIA: Spinal anesthetic EBL: 300 mL COMPLICATIONS: None evident The hospital medicine team was asked by the orthopedic surgery team to manage the patient's chronic pain and severe DDD in the setting of a KOLBY. There have been no perioperative complications. I have updated and reviewed the active medical problems, past medical history, past surgical history, social history, allergies and medications in our electronic EMR. This includes a cross reference to care everywhere in [facility] and with [facility] databases. PHYSICAL EXAM: CODE STATUS: FULL CODE CONSTITUTIONAL: Conversive, good historian. A/O. Knows setting and context. VITAL SIGNS: see record. HEENT: Normocephalic, atraumatic. PERRL, EOMI, conjunctivae pink, no scleral icterus. Ears and nose externally normal. Pharynx normal. NECK: No JVD. No carotid bruit, no thyromegaly, no adenopathy. CHEST: Clear to auscultation bilaterally HEART: S1 and S2 normal. ABDOMEN: Flat, soft, nontender. Normal bowel sounds. Moderately obese. EXTREMITIES: No edema. MUSCULOSKELETAL: SDI intact; no obvious hematoma. dry. NEURO: Cranial nerves intact. Mentation normal. Normal affect. SKIN: No rashes, petechiae, concerning changes PSYCHIATRIC: Mentation normal. INVESTIGATIONS: EMR Reviewed; Pre-OP Reviewed DISPOSITION: DVT: Xarelto and asp protocol. 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 ?M47.817 - Spondylosis without myelopathy or radiculopathy, lumbosacral region (ICD-10) Pulmonary emboli ?I26.99 - Other pulmonary embolism without acute cor pulmonale (ICD-10) Depression (08/12/09) ?F32.A - Depression, unspecified (ICD-10) Irritable bowel syndrome with diarrhea ?K58.0 - Irritable bowel syndrome with diarrhea (ICD-10) Osteopenia (05/06/13) ?M85.80 - Other specified disorders of bone density and structure, unspecified site (ICD-10) Tympanic membrane conductive hearing loss ?H90.2 - Conductive hearing loss, unspecified (ICD-10) Vitamin D deficiency ?E55.9 - Vitamin D deficiency, unspecified (ICD-10) Vaginal prolapse ?N81.10 - Cystocele, unspecified (ICD-10) Scoliosis of lumbar region due to degenerative disease of spine in adult ?M41.56 - Other secondary scoliosis, lumbar region (ICD-10) Grief ?F43.21 - Adjustment disorder with depressed mood (ICD-10) Osteoarthritis of right hip ?M16.11 - Unilateral primary osteoarthritis, right hip (ICD-10) Vaginal discharge ?N89.8 - Other specified noninflammatory disorders of vagina (ICD-10) Itchy scalp ?L29.9 - Pruritus, unspecified (ICD-10) Hyperlipidemia ?E78.5 - Hyperlipidemia, unspecified (ICD-10) Rectal prolapse ?K62.3 - Rectal prolapse (ICD-10) Bilateral primary osteoarthritis of hip ?M16.0 - Bilateral primary osteoarthritis of hip (ICD-10) Osteomyelitis ?M86.9 - Osteomyelitis, unspecified (ICD-10) Abnormal bone scan of thoracic spine ?R94.8 - Abnormal results of function studies of other organs and systems (ICD-10) Elevated total protein ?R77.8 - Other specified abnormalities of plasma proteins (ICD-10) Elevated alkaline phosphatase level ?R74.8 - Abnormal levels of other serum enzymes (ICD-10) Endometrial thickening on ultrasound ?R93.89 - Abnormal findings on diagnostic imaging of other specified body structures (ICD-10) Diverticulosis of sigmoid colon (02/08/11) ?K57.30 - Diverticulosis of large intestine without perforation or abscess without bleeding (ICD-10) Clostridium difficile diarrhea ?A04.72 - Enterocolitis due to Clostridium difficile, not specified as recurrent (ICD-10) Calculus of kidney (08/12/09) ?N20.0 - Calculus of kidney (ICD-10) Surgical History (Updated 04/19/25 @ 23:13 by Hailey Heart MD) S/P total right hip arthroplasty ?Z96.641 - Presence of right artificial hip joint (ICD-10) H/O blepharoplasty ?Z98.890 - Other specified postprocedural states (ICD-10) History of thumb surgery ?Z98.890 - Other specified postprocedural states (ICD-10) History of lithotripsy (08/12/09) ?Z98.890 - Other specified postprocedural states (ICD-10) History of cholecystectomy ?Z90.49 - Acquired absence of other specified parts of digestive tract (ICD-10) Family History Sister Breast cancer Diabetes Maternal Grandmother Breast cancer Father Diabetes Social History What is your current living situation?: I presently have a place to live Problems where you live: no known problems In the past 12 months, utilities in danger of being shut off: no In past 12 months, lack of transportation kept you from medical appts, meetings, work, or getting things needed for daily living: no In the past 12 mos, have been you worried that your food would run out before you had money to buy more?: never true In the past 12 mos, the food you bought just didn't last and you didn't have money to buy more?: never true Smoking Status: Never smoker How often do you have a drink containing alcohol: 2-4 times a month Alcohol type: wine How many standard drinks containing alcohol do you have on a typical day: 1 or 2 How often do you have six or more drinks on one occasion: Never AUDIT-C Alcohol total score: 2 Caffeine: No How often does anyone, including family, friends and others, physically hurt you: never How often does anyone, including family, friends and others, insult or talk down to you: never How often does anyone, including family, friends and others, threaten you with harm: never How often does anyone, including family, friends and others, scream or curse at you: never service: No Meds Home Medications and Allergies Home Medications ?Medication ?Instructions ?Recorded ?Confirmed ?Type mecobalamin (vitamin B12) 1,000 1,000 mcg PO QDAY 07/02/23 04/19/25 History mcg chewable tablet cholecalciferol (vitamin D3) 25 25 mcg PO QDAY 02/03/24 04/19/25 History mcg (1,000 unit) capsule cholestyramine-aspartame 4 gram 1 g .Route .COMPLEX PRN diarrhea 09/10/24 04/19/25 Rx oral powder (Prevalite) #231 grams celecoxib 100 mg capsule (Celebrex) 100 mg PO BID #180 caps 02/12/25 04/19/25 Rx citalopram 20 mg tablet (Celexa) 20 mg PO QDAY #90 tabs 02/12/25 04/19/25 Rx clobetasol 0.05 % shampoo 1 applic topical QHS 4 weeks #118 02/12/25 04/07/25 Rx mL oxycodone 10 mg tablet 10 mg PO BID PRN pain #10 tabs 02/12/25 04/19/25 Rx rosuvastatin 20 mg tablet (Crestor) 20 mg PO QDAY #90 tabs 03/08/25 04/07/25 Rx Walker- 2 Wheels #1 ea 04/06/25 04/07/25 Rx ofloxacin 0.3 % ear drops drp otic (ear) 04/07/25 04/07/25 History Raised Toilet Seat with Handles #1 ea 04/13/25 Rx Shower Chair #1 ea 04/13/25 Rx Allergies Allergy/AdvReac Type Severity Reaction Status Date / Time No Known Allergies Allergy Verified 04/19/25 09:12 Exam Const: Vital Signs, click to edit/add: Vital Signs - 24 hr 04/19/25 09:58 04/19/25 10:10 04/19/25 10:15 Temperature 97 F L Pulse Rate 65 63 60 Pulse Rate [Pulse Oximeter] Respiratory Rate 16 16 16 Blood Pressure 148/78 H 144/69 H 127/75 Blood Pressure [Le ft Arm] Pulse Oximetry 100 100 100 Oxygen Delivery Me thod Nasal Cannula Nasal Cannula Oxygen Flow Rate 2 2 04/19/25 10:30 04/19/25 13:00 04/19/25 13:05 Temperature 97.1 F L Pulse Rate 55 L 61 53 L Pulse Rate [Pulse Oximeter] Respiratory Rate 16 14 14 Blood Pressure 111/65 90/59 L 122/60 Blood Pressure [Le ft Arm] Pulse Oximetry 99 93 93 Oxygen Delivery Me thod Nasal Cannula Room Air Room Air Oxygen Flow Rate 2 04/19/25 13:10 04/19/25 13:15 04/19/25 13:20 Temperature Pulse Rate 64 52 L 50 L Pulse Rate [Pulse Oximeter] Respiratory Rate 14 14 14 Blood Pressure 95/63 109/55 L 100/57 L Blood Pressure [Le ft Arm] Pulse Oximetry 95 93 96 Oxygen Delivery Me thod Room Air Room Air Room Air Oxygen Flow Rate 04/19/25 13:25 04/19/25 13:28 04/19/25 13:39 Temperature 97 F L Pulse Rate 53 L 58 L Pulse Rate [Pulse Oximeter] Respiratory Rate 14 14 16 Blood Pressure 108/72 111/57 L Blood Pressure [Le ft Arm] Pulse Oximetry 93 97 93 Oxygen Delivery Me thod Room Air Room Air Room Air Oxygen Flow Rate 2 04/19/25 13:39 04/19/25 13:45 04/19/25 14:00 Temperature 96.0 F L 96.9 F L Pulse Rate Pulse Rate [Pulse Oximeter] 55 L 59 L 66 Respiratory Rate 16 16 16 Blood Pressure Blood Pressure [Le ft Arm] 117/68 120/63 127/70 Pulse Oximetry 93 95 97 Oxygen Delivery Me thod Room Air Room Air Room Air Oxygen Flow Rate 04/19/25 14:15 04/19/25 14:30 04/19/25 15:08 Temperature 97.2 F L 97.1 F L Pulse Rate Pulse Rate [Pulse Oximeter] 57 L 55 L 56 L Respiratory Rate 16 16 Blood Pressure Blood Pressure [Le ft Arm] 115/59 L 123/61 119/62 Pulse Oximetry 98 97 Oxygen Delivery Me thod Room Air Room Air Oxygen Flow Rate 04/19/25 15:35 04/19/25 15:38 04/19/25 16:38 Temperature 96.8 F L 97.1 F L Pulse Rate Pulse Rate [Pulse Oximeter] 54 L 52 L Respiratory Rate 16 16 Blood Pressure Blood Pressure [Le ft Arm] 119/66 114/58 L Pulse Oximetry 97 99 98 Oxygen Delivery Me thod Room Air Room Air Room Air Oxygen Flow Rate 04/19/25 17:28 04/19/25 18:38 04/19/25 19:38 Temperature 97.1 F L 97.7 F 97.6 F Pulse Rate Pulse Rate [Pulse Oximeter] 69 79 60 Respiratory Rate 16 18 16 Blood Pressure Blood Pressure [Le ft Arm] 103/53 L 112/70 119/84 Pulse Oximetry 90 99 97 Oxygen Delivery Me thod Room Air Room Air Room Air Oxygen Flow Rate Assessment and Plan Assessment and plan (1) S/P total right hip arthroplasty: Problem comment: 04/19/25, Dr. 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
[2025-04-20] MEDS: CEFAZOLIN 1 GM in 0.9 % SODIUM CHLORIDE Mini-bag 100 ML IVPB (02:39)
[2025-04-20 03:00] VITALS: BP 106/68; PULSE 60; RESP 16; TEMP 36.2; O2SAT 97
[2025-04-20] MEDS: ACETAMINOPHEN 500 MG TABLET 1000 MG PO ×2 (04:35→10:15)
--- NOTE | 2025-04-20 06:46 | PC.NURSE ---
End of shift Note 255? ? Patient has been very pleasant and cooperative throughout shift. Right KOLBY. VSS. A&Ox4. Afebrile. Patient moves well SBA with gait belt and walker. Saline locked. Drinking and voiding well.?Surgical dressing intact and dry. Minimal swelling on surgical site.?
[2025-04-20 07:00] VITALS: BP 126/62; PULSE 60; RESP 20; TEMP 36.7; O2SAT 99
[2025-04-20] MEDS: RIVAROXABAN 10 MG TABLET PO (08:33)
[2025-04-20] MEDS: CITALOPRAM HYDROBROMIDE 20 MG TABLET PO (08:34)
[2025-04-20] MEDS: ROSUVASTATIN CALCIUM 10 MG TABLET 20 MG PO (08:34)
--- NOTE | 2025-04-20 10:29 | PM.ORPN ---
Subjective Subjective Date Seen: 04/20/25 Principal diagnosis: Status postop day 1, right total hip arthroplasty - anterior approach Interval history: Patient reports doing okay. No acute events over night. Pain managed with scheduled and PRN medications, ice. DVT prophylaxis: Rivaroxaban, SCDs, walking. Denies fevers, chills, aches, N/V, CP, SOB/MALHOTRA, or lightheadedness. Not passing flatus. Has been prescribed oxycodone in the past, but not on a pain schedule/contract. She has a history of what is thought to be provoked PE due to COVID years ago. She believes she had testing after this event, but I do not see any notes on these panels such as Factor 5 Leiden disease, or protein S/C deficiency. Ortho Exam Narrative Exam Narrative: -Patient appears comfortable in recliner; no apparent acute distress -Alert and oriented times 3 -Operative hip swollen; soft tissues supple; no obvious erythema. Ecchymosis minimal. Warmth appropriate -Surgical dressing clean, dry, intact; no obvious drainage, no erythematous streaking peripheral to the bandage -Bilateral calves soft and supple; no significant swelling, edema, tenderness, erythema, discoloration, warmth, or palpable cords -2+ DP/PT pulses, intact dermatomes and myotomes distally (5/5 strength). Noted numbness about the lateral femoral cutaneous nerve distribution. Const Vital Signs, click to edit/add: Vital Signs - 24 hr 04/19/25 10:30 04/19/25 13:00 04/19/25 13:05 Temperature 97.1 F L Pulse Rate 55 L 61 53 L Pulse Rate [Pulse Oximeter] Pulse Rate [Right Dorsalis Pedis] Respiratory Rate 16 14 14 Blood Pressure 111/65 90/59 L 122/60 Blood Pressure [Left Arm] Pulse Oximetry 99 93 93 Oxygen Delivery Method Nasal Cannula Room Air Room Air Oxygen Flow Rate 2 04/19/25 13:10 04/19/25 13:15 04/19/25 13:20 Temperature Pulse Rate 64 52 L 50 L Pulse Rate [Pulse Oximeter] Pulse Rate [Right Dorsalis Pedis] Respiratory Rate 14 14 14 Blood Pressure 95/63 109/55 L 100/57 L Blood Pressure [Left Arm] Pulse Oximetry 95 93 96 Oxygen Delivery Method Room Air Room Air Room Air Oxygen Flow Rate 04/19/25 13:25 04/19/25 13:28 04/19/25 13:39 Temperature 97 F L Pulse Rate 53 L 58 L Pulse Rate [Pulse Oximeter] Pulse Rate [Right Dorsalis Pedis] Respiratory Rate 14 14 16 Blood Pressure 108/72 111/57 L Blood Pressure [Left Arm] Pulse Oximetry 93 97 93 Oxygen Delivery Method Room Air Room Air Room Air Oxygen Flow Rate 2 04/19/25 13:39 04/19/25 13:45 04/19/25 14:00 Temperature 96.0 F L 96.9 F L Pulse Rate Pulse Rate [Pulse Oximeter] 55 L 59 L 66 Pulse Rate [Right Dorsalis Pedis] Respiratory Rate 16 16 16 Blood Pressure Blood Pressure [Left Arm] 117/68 120/63 127/70 Pulse Oximetry 93 95 97 Oxygen Delivery Method Room Air Room Air Room Air Oxygen Flow Rate 04/19/25 14:15 04/19/25 14:30 04/19/25 15:08 Temperature 97.2 F L 97.1 F L Pulse Rate Pulse Rate [Pulse Oximeter] 57 L 55 L 56 L Pulse Rate [Right Dorsalis Pedis] Respiratory Rate 16 16 Blood Pressure Blood Pressure [Left Arm] 115/59 L 123/61 119/62 Pulse Oximetry 98 97 Oxygen Delivery Method Room Air Room Air Oxygen Flow Rate 04/19/25 15:35 04/19/25 15:38 04/19/25 16:38 Temperature 96.8 F L 97.1 F L Pulse Rate Pulse Rate [Pulse Oximeter] 54 L 52 L Pulse Rate [Right Dorsalis Pedis] Respiratory Rate 16 16 Blood Pressure Blood Pressure [Left Arm] 119/66 114/58 L Pulse Oximetry 97 99 98 Oxygen Delivery Method Room Air Room Air Room Air Oxygen Flow Rate 04/19/25 17:28 04/19/25 18:38 04/19/25 19:38 Temperature 97.1 F L 97.7 F 97.6 F Pulse Rate Pulse Rate [Pulse Oximeter] 69 79 60 Pulse Rate [Right Dorsalis Pedis] Respiratory Rate 16 18 16 Blood Pressure Blood Pressure [Left Arm] 103/53 L 112/70 119/84 Pulse Oximetry 90 99 97 Oxygen Delivery Method Room Air Room Air Room Air Oxygen Flow Rate 04/19/25 23:00 04/19/25 23:00 04/20/25 03:00 Temperature 98.1 F 97.2 F L Pulse Rate Pulse Rate [Pulse Oximeter] 91 60 Pulse Rate [Right Dorsalis Pedis] Respiratory Rate 16 16 16 Blood Pressure Blood Pressure [Left Arm] 106/58 L 106/68 Pulse Oximetry 93 93 97 Oxygen Delivery Method Room Air Room Air Room Air Oxygen Flow Rate 04/20/25 07:00 04/20/25 07:00 Temperature 98.1 F Pulse Rate Pulse Rate [Pulse Oximeter] Pulse Rate [Right Dorsalis Pedis] 60 Respiratory Rate 20 20 Blood Pressure Blood Pressure [Left Arm] 126/62 Pulse Oximetry 99 99 Oxygen Delivery Method Room Air Room Air Oxygen Flow Rate Assessment and Plan Assessment and plan (1) S/P total right hip arthroplasty: Problem details: 04/19/25, Dr. 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 - PT/OT consult for education and assistance. - Social work consult for discharge planning - Prescribed analgesics as needed - DVT prophylaxis: Rivaroxaban for 1 month at 10 mg once daily, walking, and SCDs. Due to history of PE, although this was reportedly provoked, further protection from blood clot is indicated at this time. - Anticipation is for discharge to home with family today 04/20/2025 if the patient remains medically stable, pain is controlled, and they are safe with mobilization.
--- NOTE | 2025-04-20 10:49 | PC.SOCIAL ---
Discharge planning: SW met with patient who states that she has no needs or concerns for discharging home. Patient states that she has support from her daughter and all needs met. SW to assist if needs arise.
--- NOTE | 2025-04-20 11:48 | P.IMPN_ITS ---
Assessment and Plan Assessment and plan (1) S/P total right hip arthroplasty: Problem comment: 04/19/25, Dr. Shabazz Routine postoperative course expected Status: Acute (2) Pulmonary emboli: Problem comment: provoked after covid no longer on oral anticoagulation Discussed with patient and her daughter. Agreeable to prophylaxis with low dose DOAC (Eliquis) for 4 weeks due to increased risk during hypercoagulable state after KOLBY. Status: Acute Total Time Spent Total Time Spent: Today I spent 40 minutes seeing the patient, discussion with the patient and her daughter, discussion with Ortho, discussion with pharmacy, reviewing [facility] and EPIC notes/diagnostics/labs, discussing the care plan with our care team that includes social work, PT/OT, pharmacy, RT, nursing home and documenting my impressions and plan in the medical record. Subjective Time Seen by Provider: 10:53 Date Seen: 04/20/25 Interval history: Ana is feeling well and hoping to go home today. She denies chest pain or breath. 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 I had also spoken with Parvin, our pharmacist, about VTE prophylaxis in this case. Low dose Xarelto was sent to her pharmacy, but she says that it is very expensive since it is not specifically for treatment of a PE. After talking with her and her daughter, who was in the room with her, about it, I also sent prescriptions for low-dose Eliquis and low-dose enoxaparin to see which 1 would be most cost efficient for her. I went back to check and they told me that Eliquis was not too expensive and she would like to discharge on that. Exam Narrative: Exam Narrative: General: No acute distress. Awake, alert, oriented. No pallor. No jaundice. Cardiovascular: Regular rate and rhythm. No murmurs, gallops, or rubs. Respiratory: Clear to auscultation bilaterally. No wheezes or crackles. Const: Vital Signs, click to edit/add: Vital Signs - 24 hr 04/19/25 13:00 04/19/25 13:05 04/19/25 13:10 Temperature 97.1 F L Pulse Rate 61 53 L 64 Pulse Rate [Pulse Oximeter] Pulse Rate [Right Dorsalis Pedis] Respiratory Rate 14 14 14 Blood Pressure 90/59 L 122/60 95/63 Blood Pressure [Le ft Arm] Pulse Oximetry 93 93 95 Oxygen Delivery Me thod Room Air Room Air Room Air Oxygen Flow Rate 04/19/25 13:15 04/19/25 13:20 04/19/25 13:25 Temperature Pulse Rate 52 L 50 L 53 L Pulse Rate [Pulse Oximeter] Pulse Rate [Right Dorsalis Pedis] Respiratory Rate 14 14 14 Blood Pressure 109/55 L 100/57 L 108/72 Blood Pressure [Le ft Arm] Pulse Oximetry 93 96 93 Oxygen Delivery Me thod Room Air Room Air Room Air Oxygen Flow Rate 04/19/25 13:28 04/19/25 13:39 04/19/25 13:39 Temperature 97 F L 96.0 F L Pulse Rate 58 L Pulse Rate [Pulse Oximeter] 55 L Pulse Rate [Right Dorsalis Pedis] Respiratory Rate 14 16 16 Blood Pressure 111/57 L Blood Pressure [Le ft Arm] 117/68 Pulse Oximetry 97 93 93 Oxygen Delivery Me thod Room Air Room Air Room Air Oxygen Flow Rate 2 04/19/25 13:45 04/19/25 14:00 04/19/25 14:15 Temperature 96.9 F L Pulse Rate Pulse Rate [Pulse Oximeter] 59 L 66 57 L Pulse Rate [Right Dorsalis Pedis] Respiratory Rate 16 16 16 Blood Pressure Blood Pressure [Le ft Arm] 120/63 127/70 115/59 L Pulse Oximetry 95 97 98 Oxygen Delivery De thod Room Air Room Air Room Air Oxygen Flow Rate 04/19/25 14:30 04/19/25 15:08 04/19/25 15:35 Temperature 97.2 F L 97.1 F L Pulse Rate Pulse Rate [Pulse Oximeter] 55 L 56 L Pulse Rate [Right Dorsalis Pedis] Respiratory Rate 16 16 Blood Pressure Blood Pressure [Le ft Arm] 123/61 119/62 Pulse Oximetry 97 97 Oxygen Delivery Me thod Room Air Room Air Oxygen Flow Rate 04/19/25 15:38 04/19/25 16:38 04/19/25 17:28 Temperature 96.8 F L 97.1 F L 97.1 F L Pulse Rate Pulse Rate [Pulse Oximeter] 54 L 52 L 69 Pulse Rate [Right Dorsalis Pedis] Respiratory Rate 16 16 Blood Pressure Blood Pressure [Le ft Arm] 119/66 114/58 L 103/53 L Pulse Oximetry 99 98 90 Oxygen Delivery Me thod Room Air Room Air Room Air Oxygen Flow Rate 04/19/25 18:38 04/19/25 19:38 04/19/25 23:00 Temperature 97.7 F 97.6 F 98.1 F Pulse Rate Pulse Rate [Pulse Oximeter] 79 60 91 Pulse Rate [Right Dorsalis Pedis] Respiratory Rate 18 16 16 Blood Pressure Blood Pressure [Le ft Arm] 112/70 119/84 106/58 L Pulse Oximetry 99 97 93 Oxygen Delivery Me thod Room Air Room Air Room Air Oxygen Flow Rate 04/19/25 23:00 04/20/25 03:00 04/20/25 07:00 Temperature 97.2 F L Pulse Rate Pulse Rate [Pulse Oximeter] 60 Pulse Rate [Right Dorsalis Pedis] Respiratory Rate 16 16 20 Blood Pressure Blood Pressure [Le ft Arm] 106/68 Pulse Oximetry 93 97 99 Oxygen Delivery Me thod Room Air Room Air Room Air Oxygen Flow Rate 04/20/25 07:00 Temperature 98.1 F Pulse Rate Pulse Rate [Pulse Oximeter] Pulse Rate [Right Dorsalis Pedis] 60 Respiratory Rate 20 Blood Pressure Blood Pressure [Le ft Arm] 126/62 Pulse Oximetry 99 Oxygen Delivery Me thod Room Air Oxygen Flow Rate
== END 2025-04-20 13:00 | disposition home or self-care (01) ==
LOC: OR 08:52 → MEDSURG 10:02
PROVIDERS: PCP Family Medicine; Visit Provider Orthopaedic Surgery Sports Medicine
PROC: (CPT 27130; principal; 2025-04-19 10:15)
DX: M16.11 Unilateral primary osteoarthritis, right hip (principal); G89.18 Other acute postprocedural pain; M47.817 Spondylosis without myelopathy or radiculopathy, lumbosacral region; G89.29 Other chronic pain; Z86.711 Personal history of pulmonary embolism; Z79.01 Long term (current) use of anticoagulants; K58.0 Irritable bowel syndrome with diarrhea; M85.80 Other specified disorders of bone density and structure, unspecified site; E78.5 Hyperlipidemia, unspecified; F32.A Depression, unspecified
CPT/HCPCS: 27130; 01214; 36415; 64450; 73501; 76942; 86850; 86900; 86901; 97110; 97116; 97162; 97165; 97530; 97535; 99100; A9270; C1776; J0690; J1100; J2250; J2371; J2405; J2704; J2765; J2795; J3010; J7120

== ENCOUNTER 2025-05-26 11:06 | Outpatient (CLI) | payer MEDICARE, SELFPAY ==
[2025-05-26 21:32] LABS: Bacterial Vaginosis* Negative (Negative); Candida glab/krus NOT DETECTED (No Detected)
== END 2025-05-26 11:07 | disposition home or self-care (01) ==
LOC: NFLDREF 11:07
PROVIDERS: PCP Family Medicine; Visit Provider Obstetrics & Gynecology
DX: N89.8 Other specified noninflammatory disorders of vagina (principal)
CPT/HCPCS: 81513; 87481; 87661

== ENCOUNTER 2025-06-09 14:42 | Outpatient (CLI) | payer MEDICARE, SELFPAY ==
--- NOTE | 2025-06-09 14:40 | CRLHL7_ITS ---
For Patients: As a result of the Century Cures Act, medical imaging exams and procedure reports are released immediately into your electronic medical record. You may view this report before your referring provider. If you have questions, please contact your health care provider. INDICATION: BILATERAL SCREENING MAMMGORAM, ASYMPTOMATIC 74 Y/O FEMALE COMPARISON: 06/14/2023, 12/08/2021, 12/01/2021 TECHNIQUE: Digital mammogram in CC and MLO projections including computer-aided detection (CAD) and tomosynthesis. BREAST COMPOSITION: There are scattered areas of fibroglandular density. FINDINGS: No suspicious findings. ASSESSMENT: BI-RADS 2 Benign RECOMMENDATION: Annual screening mammogram. A lay language report of this examination will be provided to the patient. Dictated by: Shivam Donahue MD @ 06/10/2025 10:05:44 (Electronically Signed)
== END 2025-06-09 14:43 | disposition home or self-care (01) ==
LOC: MAMMO 14:42
PROVIDERS: PCP Family Medicine; Visit Provider Family Medicine
DX: Z12.31 Encounter for screening mammogram for malignant neoplasm of breast (principal)
CPT/HCPCS: 77063; 77067